=== PATIENT | male | born 1985 | race Caucasian/White ===

== ENCOUNTER 2018-12-29 07:41 | Emergency (ER) | payer BC ==
[~2018-12-29] VITALS: Ht 175.3 cm; Wt 77.1 kg
[2018-12-29 07:52] VITALS: BP 120/71
--- NOTE | 2018-12-29 07:57 | Emergency Room Report ---
History of Present Illness General Chief Complaint: Earache Source: Patient Present Illness HPI The patient states that around 3 AM this morning he noticed ear pain in his right ear. He states that the pain occurs intermittently. He states he will have time in between episodes where his symptoms are gone. He denies recent illness. He denies sore throat. He denies congestion. He denies discharge from the ear. He has no other complaints. Allergies: Coded Allergies: AMOXICILLIN (Verified Allergy, Unknown, 12/29/18) CEFACLOR (Verified Allergy, Unknown, 12/29/18) Patient History Past Medical History: asthma - As a child Social History: Denies: smoking, alcohol use, drug use Reviewed Nursing Documentation: PMH: Agreed; PSxH: Agreed Nursing Documentation-PMH Past Medical History: No Stated History Review of Systems All Other Systems: negative except mentioned in HPI Physical Exam Vital Signs Date Time Temp Pulse Resp B/P (MAP) Pulse Ox O2 Delivery O2 Flow Rate FiO2 12/29/18 07:44 98.1 78 18 121/74 (90) 98 Room Air Sp02 EP Interpretation: reviewed, normal General Appearance: no apparent distress, alert, GCS 15, non-toxic Head: normocephalic, atraumatic Eyes: bilateral eye normal inspection, bilateral eye PERRL ENT: hearing grossly normal, normal pharynx, no angioedema, normal voice, other - Live bug located in R. ear canal Neck: normal inspection Respiratory: no respiratory distress, no retraction, no accessory muscle use, speaking full sentences Rectal: deferred Musculoskeletal: normal inspection, gait/station normal Neurologic: alert, oriented x3, speech normal Psychiatric: judgement/insight normal, memory normal, mood/affect normal, no suicidal/homicidal ideation Skin: normal color, no rash, warm/dry, well hydrated Medical Decision Making Diagnostic Impression: Primary Impression: Acute foreign body of right ear canal Additional Impression: Insect in R. ear canal ER Course This patient had a small insect in his right ear canal. When I flushed the ear canal with 1% lidocaine, the insect crawled out. Repeat examination showed no further foreign body or insect in the ear canal. There was some irritation and slight bleeding of the inferior aspect of the ear canal. Tympanic membrane was normal. As a precaution, and to prevent infection, I will place the patient on topical antibiotics. Patient is given return precautions and follow-up instructions. Last Vital Signs Date Time Temp Pulse Resp B/P (MAP) Pulse Ox O2 Delivery O2 Flow Rate FiO2 12/29/18 07:52 98.1 72 16 120/71 99 Room Air Status: improved Disposition: HOME, SELF-CARE Condition: Improved Melissa Silverio DO Dec 29, 2018 07:57
[2018-12-29] MEDS ORDERED: OFLOXACIN5 ML OT (08:14)
== END 2018-12-29 08:20 | disposition home or self-care (01) ==
LOC: EMR 08:00
DX: T16.1XXA Foreign body in right ear, initial encounter (principal); X58.XXXA Exposure to other specified factors, initial encounter; Y92.9 Unspecified place or not applicable; Z88.0 Allergy status to penicillin; Z88.8 Allergy status to other drugs, medicaments and biological substances
CPT/HCPCS: 99282